=== PATIENT | male | born 1950 | race Two or more races ===

== ENCOUNTER 2022-05-27 12:35 | Inpatient (IN) | payer MEDICARE, MEDICAID ==
[~2022-05-27] VITALS: Ht 175.3 cm; Wt 78.0 kg
[2022-05-27] MEDS ORDERED: SODIUM CHLORIDE 0.9% 1000ML BAG (SEPSIS BOLUS) IV ONE (13:00)
[2022-05-27 13:24] LABS: BASOPHILS % 0.3 % (0.0-2.0); EOSINOPHILS % 2.2 % (0.0-5.0); HEMATOCRIT. 42.6 % (42.0-52.0); HEMOGLOBIN. 14.3 g/dL (14.0-18.0); LYMPHOCYTES % 18.6 % (20.0-50.0); MEAN CORPUSCULAR VOLUME 92.2 fL (80.0-94.0); MEAN PLATELET VOLUME 7.9 fl (7.4-10.4); MONOCYTES % 6.1 % (2.0-8.0); NEUTROPHILS % 72.8 % (40.0-76.0); PLATELET 190 x1000/uL (130-400); RED BLOOD CELL COUNT 4.62 mill/uL (4.7-6.1); RED CELL DISTRIBUTION WIDTH 13.3 % (11.6-14.6)
[2022-05-27 13:32] LABS: CHLORIDE 105 mEq/L (98-107); PROTHROMBIN TIME 10.9 sec (9.6-11.0)
[2022-05-27 15:21] LABS: CLARITY URINE CLEAR (CLEAR); COLOR URINE YELLOW (YELLOW); KETONES URINE NEGATIVE (NEGATIVE); LEUKOCYTE ESTERASE URINE NEGATIVE (NEGATIVE); NITRITE URINE NEGATIVE (NEGATIVE); OCCULT BLOOD URINE NEGATIVE (NEGATIVE); PROTEIN URINE NEGATIVE (NEGATIVE); UROBILINOGEN URINE 0.2 E.U./dL (0.2-1.0)
[2022-05-27] MEDS ORDERED: HALOPERIDOL LACTATE 5MG/ML VIAL IM ONE (17:30)
[2022-05-27 22:30] VITALS: BP_SYST 148; BP_SYST 159; BP_DIAS 72; BP_DIAS 96
[2022-05-27 22:55] VITALS: BP 159/96
[2022-05-27] MEDS ORDERED: VENL-180 PO (23:22)
[2022-05-27] MEDS ORDERED: GUAI-1268 PO (23:22)
[2022-05-27] MEDS ORDERED: TRAM50TA3 PO (23:22)
[2022-05-27] MEDS ORDERED: TOPUD PO (23:22)
[2022-05-27] MEDS ORDERED: BENZ1TAB78 PO (23:22)
[2022-05-27] MEDS ORDERED: BENA10TA75 PO (23:22)
[2022-05-27] MEDS ORDERED: OMEP40CA20 PO (23:22)
[2022-05-27] MEDS ORDERED: HALO10TA13 PO (23:22)
[2022-05-27] MEDS ORDERED: TAMS-11 PO (23:22)
[2022-05-27] MEDS ORDERED: ATOR20TA65 PO (23:22)
[2022-05-28] VITALS (7 sets, daily range): BP systolic 114–148; BP diastolic 67–86
[2022-05-28] MEDS ORDERED: CLONIDINE 0.1MG TABLET PO PRN
[2022-05-28] MEDS: OMEPRAZOLE 20MG CAPSULE EXTENDED RELEASE PO SCH (06:09)
[2022-05-28 06:23] LABS: BASOPHILS % 0.4 % (0.0-2.0); EOSINOPHILS % 3.3 % (0.0-5.0); HEMATOCRIT. 41.5 % (42.0-52.0); HEMOGLOBIN. 14.2 g/dL (14.0-18.0); LYMPHOCYTES % 23.5 % (20.0-50.0); MEAN CORPUSCULAR HEMOGLOBIN 31.4 pg (28.0-32.0); MEAN CORPUSCULAR VOLUME 91.7 fL (80.0-94.0); MONOCYTES % 8.8 % (2.0-8.0); PLATELET 180 x1000/uL (130-400); RED BLOOD CELL COUNT 4.52 mill/uL (4.7-6.1)
[2022-05-28 07:05] LABS: CHLORIDE 107 mEq/L (98-107)
[2022-05-28 07:14] LABS: HDL CHOLESTEROL 48 mg/dL (40-59); LDL CHOLESTEROL 45 mg/dL (5-100)
[2022-05-28] MEDS: VENLAFAXINE HCL 37.5MG SR CAPSULE 24HR PO SCH (08:59)
[2022-05-28] MEDS: HALOPERIDOL 5MG TABLET PO SCH ×2 (08:59→16:34)
[2022-05-28] MEDS: TAMSULOSIN HCL 0.4MG SR CAPSULE PO SCH (08:59)
[2022-05-28] MEDS: BENZTROPINE MESYLATE 1MG TABLET PO SCH ×2 (08:59→16:34)
[2022-05-28] MEDS: BENAZEPRIL 10MG TABLET PO SCH (09:00)
[2022-05-28] MEDS: ENOXAPARIN 40MG/0.4ML SYR SUBCUT SCH (09:00)
[2022-05-28] MEDS ORDERED: GUAIFENESIN-DM 200MG-20MG/10ML UDC PO PRN ×2 (14:30)
[2022-05-28] MEDS: TRAMADOL 50MG TABLET PO PRN (17:15)
[2022-05-28] MEDS: ATORVASTATIN CALCIUM 20MG TABLET PO SCH (20:28)
[2022-05-29] VITALS: BP 119/73
[2022-05-29] MEDS: OMEPRAZOLE 20MG CAPSULE EXTENDED RELEASE PO SCH (05:47)
[2022-05-29 06:00] VITALS: BP 121/62
[2022-05-29 08:00] VITALS: BP 127/60
[2022-05-29] MEDS: HALOPERIDOL 5MG TABLET PO SCH ×2 (08:44→17:22)
[2022-05-29] MEDS: BENAZEPRIL 10MG TABLET PO SCH (08:46)
[2022-05-29] MEDS: BENZTROPINE MESYLATE 1MG TABLET PO SCH ×2 (08:46→17:22)
[2022-05-29] MEDS: TAMSULOSIN HCL 0.4MG SR CAPSULE PO SCH (08:46)
[2022-05-29] MEDS: VENLAFAXINE HCL 37.5MG SR CAPSULE 24HR PO SCH (08:46)
[2022-05-29] MEDS: ENOXAPARIN 40MG/0.4ML SYR SUBCUT SCH (08:48)
[2022-05-29 12:00] VITALS: BP 130/77
[2022-05-29 16:00] VITALS: BP 129/70
[2022-05-29] MEDS: TRAMADOL 50MG TABLET PO PRN (18:10)
[2022-05-29 20:00] VITALS: BP 117/95
[2022-05-29] MEDS: ATORVASTATIN CALCIUM 20MG TABLET PO SCH (20:17)
[2022-05-30] VITALS: BP 122/72
[2022-05-30 04:00] VITALS: BP 141/80
[2022-05-30] MEDS: OMEPRAZOLE 20MG CAPSULE EXTENDED RELEASE PO SCH (06:11)
[2022-05-30 08:00] VITALS: BP 151/83
[2022-05-30] MEDS: VENLAFAXINE HCL 37.5MG SR CAPSULE 24HR PO SCH (08:51)
[2022-05-30] MEDS: BENZTROPINE MESYLATE 1MG TABLET PO SCH ×2 (08:52→16:44)
[2022-05-30] MEDS: ENOXAPARIN 40MG/0.4ML SYR SUBCUT SCH (08:52)
[2022-05-30] MEDS: BENAZEPRIL 10MG TABLET PO SCH (08:52)
[2022-05-30] MEDS: HALOPERIDOL 5MG TABLET PO SCH ×2 (08:52→16:44)
[2022-05-30] MEDS: TAMSULOSIN HCL 0.4MG SR CAPSULE PO SCH (08:52)
[2022-05-30 11:43] VITALS: BP 94/46
[2022-05-30 16:00] VITALS: BP 124/74
[2022-05-30] MEDS ORDERED: NALOXONE HCL 0.4MG/ML VIAL IV PRN (17:30)
[2022-05-30 18:55] VITALS: BP 124/74
[2022-05-30] MEDS: ATORVASTATIN CALCIUM 20MG TABLET PO SCH (20:22)
== END 2022-05-30 20:36 | DRG 70 ==
LOC: ER 12:35 → 7EST 17:03 → EDBEDREQ 17:05 → EDBEDREQSVC 17:05
PROVIDERS: ADMIT Internal Medicine; ATTEND Internal Medicine
DX: G93.41 Metabolic encephalopathy (principal); I46.9 Cardiac arrest, cause unspecified; R55 Syncope and collapse; G20 Parkinson's disease; F31.9 Bipolar disorder, unspecified; F20.9 Schizophrenia, unspecified; K21.9 Gastro-esophageal reflux disease without esophagitis; E78.00 Pure hypercholesterolemia, unspecified; I10 Essential (primary) hypertension
CPT/HCPCS: 36415; 71045; 80048; 80053; 80061; 81003; 83605; 83880; 84145; 84484; 85025; 85379; 86850; 86900; 93005; 93306; 99285; J1630; J1650; J7030